=== PATIENT | female | born 1950 | race Two or more races ===

== ENCOUNTER → 2019-12-20 | Outpatient (CLI) | payer OTHER ==
[2019-12-20 08:16] LABS: Basophils # (auto) 0 10 ^3/uL (0-0.2); Basophils % (auto) 0.5 % (0.0-2.0); Eosinophils # (auto) 0.2 10 ^3/uL (0-0.8); Eosinophils % (auto) 3.3 % (0.0-7.0); Hematocrit 37.8 % (36.0-46.0); Hemoglobin 12.9 g/dL (12.2-16.2); Lymphocytes # (auto) 1.6 10 ^3/uL (0.4-5.4); Mean Corpuscular Hemoglobin 30.2 pg (28.0-32.0); Mean Corpuscular Hgb Conc. 34.2 g/dL (32.0-36.0); Mean Corpuscular Volume 88.4 fL (80.0-100.0); Monocytes # (auto) 0.5 10 ^3/uL (0-1.3); Monocytes % (auto) 8.4 % (0.0-12.0); Neutrophils # (auto) 4.1 10 ^3/uL (1.6-8.6); Neutrophils % (auto) 62.8 % (37.0-80.0); Nucleated Red Blood Cells % 0.1 %; Platelet Count (auto) 270 10^3/uL (140-450); Red Blood Cells 4.28 10^6/uL (4.0-5.20); Red Cell Distribution Width 13.1 % (11.8-14.3); White Blood Cell 6.5 10^3/uL (4.4-10.8)
[2019-12-20 08:52] LABS: Albumin 3.7 g/dL (3.4-5.0); Calcium 8.9 mg/dL (8.5-10.1); Potassium 3.9 mmol/L (3.5-5.1)
[2019-12-20 09:11] LABS: BUN/Creatinine Ratio 17.1; Bilirubin, Total 0.8 mg/dL (0.2-1.0); Total Protein 7.6 g/dL (6.4-8.2)
== END | disposition home or self-care (01) ==
LOC: LAB 08:01
PROVIDERS: ATTEND Student in an Organized Health Care Education/Training Program
DX: S82.142A Displaced bicondylar fracture of left tibia, initial encounter for closed fracture (principal); Z00.00 Encounter for general adult medical examination without abnormal findings; X58.XXXA Exposure to other specified factors, initial encounter; Y93.89 Activity, other specified; Y92.89 Other specified places as the place of occurrence of the external cause; Y99.8 Other external cause status; Z60.0 Problems of adjustment to life-cycle transitions
CPT/HCPCS: 36415; 80053; 80061; 85025

== ENCOUNTER 2022-05-04 08:20 | Inpatient (IN) | payer OTHER ==
[~2022-05-04] VITALS: Ht 160 cm; Wt 73.3 kg
[2022-05-04 08:54] LABS: Basophils # (auto) 0.1 10 ^3/uL (0-0.2); Basophils % (auto) 0.8 % (0.0-2.0); Eosinophils # (auto) 0.2 10 ^3/uL (0-0.8); Eosinophils % (auto) 2.8 % (0.0-7.0); Hematocrit 42.4 % (36.0-46.0); Hemoglobin 14.1 g/dL (12.2-16.2); Mean Corpuscular Hemoglobin 29.6 pg (28.0-32.0); Mean Corpuscular Hgb Conc. 33.4 g/dL (32.0-36.0); Mean Corpuscular Volume 88.8 fL (80.0-100.0); Monocytes # (auto) 0.4 10 ^3/uL (0-1.3); Monocytes % (auto) 5.9 % (0.0-12.0); Neutrophils # (auto) 4.1 10 ^3/uL (1.6-8.6); Neutrophils % (auto) 60.5 % (37.0-80.0); Nucleated Red Blood Cells % 0.2 %; Red Blood Cells 4.77 10^6/uL (4.0-5.20); Red Cell Distribution Width 13.6 % (11.8-14.3); White Blood Cell 6.8 10^3/uL (4.4-10.8)
[2022-05-04 09:07] LABS: Albumin 4.1 g/dL (3.4-5.0); Calcium 8.8 mg/dL (8.5-10.1); Potassium 4.1 mmol/L (3.5-5.1)
[2022-05-04 09:10] LABS: BUN/Creatinine Ratio 22.1; Bilirubin, Total 0.5 mg/dL (0.2-1.0); Total Protein 7.5 g/dL (6.4-8.2)
[2022-05-04] MEDS ORDERED: ACETAMINOPHEN 500 MG TAB PO PRN (10:15)
[2022-05-04] MEDS ORDERED: MORPHINE SULFATE INJ 2 MG/ml SYRG IV PRN (10:15)
[2022-05-04] MEDS ORDERED: NITROGLYCERIN 0.4 MG SL TAB SL PRN (10:15)
[2022-05-04] MEDS ORDERED: ASPirin 81 mg TAB PO ONE (10:15)
[2022-05-04] MEDS ORDERED: ONDANSETRON HCL 4 MG/2 ML VIAL IV PRN (10:15)
[2022-05-04 10:48] LABS: Cholesterol 187 mg/dL (< 200); HDL Cholesterol 53 mg/dL (40-59); LDL Cholesterol 120 mg/dL (< 100); Triglycerides 138 mg/dL (< 150)
[2022-05-04 16:51] LABS: Urine Bacteria NONE SEEN /hpf (None Seen); Urine Blood TRACE /uL (Negative); Urine Specific Gravity 1.018 (1.001-1.035); Urine WBC 6 /hpf (0 - 5)
[2022-05-04] MEDS: HYDROcodone-ACET 5/325MG TAB PO PRN (20:33)
[2022-05-04] MEDS: ATORVASTATIN 20 MG TAB PO SCH (22:08)
[2022-05-05] MEDS: ASPirin 81 mg TAB PO SCH (10:20)
[2022-05-05] MEDS: CLOPIDOGREL BISULFATE 75 MG TAB PO SCH (10:21)
[2022-05-05] MEDS ORDERED: cefTRIAXone 1GM/50ML D5W 50 ML IV ONE (15:18)
[2022-05-05 16:47] LABS: Folate (Folic Acid) > 24.00 ng/mL (5.38-24)
[2022-05-05] MEDS: HYDROcodone-ACET 5/325MG TAB PO PRN (20:41)
[2022-05-05] MEDS: ATORVASTATIN 20 MG TAB PO SCH (22:03)
[2022-05-06 00:47] VITALS: BP 127/71
[2022-05-06 05:00] VITALS: BP 104/32
[2022-05-06 09:00] VITALS: BP 142/66
[2022-05-06] MEDS ORDERED: cefTRIAXone 1GM/50ML D5W 50 ML IV SCH (09:00)
[2022-05-06] MEDS ORDERED: CLOP75TA70 PO (11:21)
[2022-05-06] MEDS ORDERED: ASPI-325 PO (11:21)
[2022-05-06] MEDS ORDERED: CEPH-510 PO (11:21)
[2022-05-06] MEDS ORDERED: ATOR20TA50 PO (11:21)
[2022-05-06 13:10] VITALS: BP 131/70
[2022-05-06 14:05] VITALS: BP 131/70
[2022-05-06] MEDS: ASPirin 81 mg TAB PO SCH (15:14)
[2022-05-06] MEDS: CLOPIDOGREL BISULFATE 75 MG TAB PO SCH (15:14)
== END 2022-05-06 17:01 | disposition home or self-care (01) | DRG 65 ==
LOC: ER 08:20 → TELE 10:22 → TELE-WESTW 05-05 22:42
PROVIDERS: ADMIT Nurse Practitioner Acute Care; ATTEND Internal Medicine
DX: I63.29 Cerebral infarction due to unspecified occlusion or stenosis of other precerebral arteries (principal); G81.91 Hemiplegia, unspecified affecting right dominant side; N30.00 Acute cystitis without hematuria; I10 Essential (primary) hypertension; R47.81 Slurred speech; Z20.822 Contact with and (suspected) exposure to COVID-19; Z79.02 Long term (current) use of antithrombotics/antiplatelets; Z79.82 Long term (current) use of aspirin; Z79.899 Other long term (current) drug therapy; Z80.3 Family history of malignant neoplasm of breast; Z83.3 Family history of diabetes mellitus; Z86.73 Personal history of transient ischemic attack (TIA), and cerebral infarction without residual deficits; Z90.49 Acquired absence of other specified parts of digestive tract
CPT/HCPCS: 36415; 70450; 70551; 71045; 80053; 80061; 81001; 82306; 82607; 82746; 83036; 84443; 84484; 85025; 87426; 92610; 93005; 93306; 93886; 96365; G0378; J0696